=== PATIENT | male | born 1995 | race Caucasian/White ===

== ENCOUNTER 2020-05-27 09:34 | Emergency (ER) | payer BC, OTHER ==
[~2020-05-27] VITALS: Ht 185.4 cm; Wt 124.7 kg
[2020-05-27 09:41] VITALS: BP_SYST 156
--- NOTE | 2020-05-27 09:44 | NUR ---
Patient to ER bed 05 to gown for evaluation. Side rails up.
--- NOTE | 2020-05-27 09:47 | NUR ---
ER Dr. Collier at bedside examining patient.
--- NOTE | 2020-05-27 09:56 | NUR ---
pt in [facility]. No distress noted.
--- NOTE | 2020-05-27 10:46 | NUR ---
pt in room 5 alert and oriented. Able to see OU.
[2020-05-27 10:55] VITALS: BP_SYST 156
--- NOTE | 2020-05-27 10:56 | NUR ---
Patient given written and verbal discharge instructions and verbalizes understanding. ER MD Collier discussed with patient the results and treatment provided. Patient in stable condition. ID arm band removed. Rx of Erythromycin eye drops given. Patient educated on pain management and to follow up with PMD. Pain Scale 1/10. Opportunity for questions provided and answered. Medication side effect fact sheet provided.
== END 2020-05-27 10:56 | disposition home or self-care (01) ==
LOC: SED 09:34
DX: T15.02XA Foreign body in cornea, left eye, initial encounter (principal); X58.XXXA Exposure to other specified factors, initial encounter; Y93.89 Activity, other specified; Y92.89 Other specified places as the place of occurrence of the external cause; Y99.8 Other external cause status
CPT/HCPCS: 99284

== ENCOUNTER 2022-09-06 14:23 | Emergency (ER) | payer BC, MEDICAID ==
[~2022-09-06] VITALS: Ht 175.3 cm; Wt 131.5 kg
--- NOTE | 2022-09-06 14:40 | NUR ---
Patient to ER bed 07 to gown for evaluation. Side rails up.
--- NOTE | 2022-09-06 14:40 | NUR ---
ER at bedside examining patient.
--- NOTE | 2022-09-06 14:42 | NUR ---
Pt brought by self, A&Ox4, pt presents to ER with pain/ redness/ possible foreign object on L eye after fixing a light, skin pink and warm, cap refill <3, VSS.
[2022-09-06 14:45] VITALS: BP_SYST 163
[2022-09-06] MEDS ORDERED: TETRACAINE HCL/PF 0.5% OPHTHALMIC DROPS 4 ML OP ONE (14:45)
[2022-09-06] MEDS ORDERED: FLUORESCEIN SODIUM 1 MG OPHTHALMIC STRIP OP ONE (14:45)
[2022-09-06] MEDS ORDERED: [UNRECOGNIZED DRUG - CODE] LEFT EYE (15:41)
[2022-09-06] MEDS ORDERED: KETO5DRO39 LEFT EYE (15:41)
--- NOTE | 2022-09-06 15:46 | NUR ---
Patient given written and verbal discharge instructions and verbalizes understanding. ER MD discussed with patient the results and treatment provided. Patient in stable condition. ID arm band removed. Rx of lubricating tears and ketorolac tromethamine given. Patient educated on pain management and to follow up with PMD. Pain Scale 0/10 Opportunity for questions provided and answered. Medication side effect fact sheet provided.
[2022-09-06 15:48] VITALS: BP_SYST 132
== END 2022-09-06 15:46 | disposition home or self-care (01) ==
LOC: SED 14:23
DX: T15.12XA Foreign body in conjunctival sac, left eye, initial encounter (principal); H10.32 Unspecified acute conjunctivitis, left eye; Z79.899 Other long term (current) drug therapy; W45.8XXA Other foreign body or object entering through skin, initial encounter; Y93.89 Activity, other specified; Y92.89 Other specified places as the place of occurrence of the external cause; Y99.8 Other external cause status
CPT/HCPCS: 99283

== ENCOUNTER 2023-02-19 14:30 | Emergency (ER) | payer MEDICAID ==
[~2023-02-19] VITALS: Ht 180.3 cm; Wt 126.1 kg
[~2023-02-19 14:30] MED LIST: KETO5DRO39 LEFT EYE; [UNRECOGNIZED DRUG - CODE] LEFT EYE
[2023-02-19 14:47] VITALS: BP_SYST 162
[2023-02-19] MEDS ORDERED: KETOROLAC TROMETHAMINE 60 MG/2 ML VIAL IM ONE (15:30)
[2023-02-19] MEDS ORDERED: MELO-89 PO (16:55)
[2023-02-19] MEDS ORDERED: DICL20GE TP (16:55)
[2023-02-19 17:01] VITALS: BP_SYST 162
== END 2023-02-19 17:03 | disposition home or self-care (01) ==
LOC: SED 14:30
DX: M16.12 Unilateral primary osteoarthritis, left hip (principal); M25.552 Pain in left hip; Z79.899 Other long term (current) drug therapy
CPT/HCPCS: 99284; 73502; 96372; 72170; J1885